=== PATIENT | female | born 1975 | race African-American/Black ===

== ENCOUNTER 2017-08-21 13:29 | Emergency (ER) | payer OTHER, SELFPAY ==
--- NOTE | 2017-08-21 15:56 | RAD ---
LEFT KNEE FOUR VIEWS: 08/21/17 HISTORY: Fall. Left knee pain. FINDINGS/IMPRESSION: Comparison is made with the exam of 04/12/10. No fracture, dislocation, or bony destruction or joint effusion identified. POS: OFF
== END 2017-08-21 15:25 | disposition home or self-care (01) ==
LOC: ERS 13:29
DX: S01.112A Laceration without foreign body of left eyelid and periocular area, initial encounter (principal); S00.81XA Abrasion of other part of head, initial encounter; S80.212A Abrasion, left knee, initial encounter; J45.909 Unspecified asthma, uncomplicated; F17.210 Nicotine dependence, cigarettes, uncomplicated; W01.10XA Fall on same level from slipping, tripping and stumbling with subsequent striking against unspecified object, initial encounter

== ENCOUNTER 2017-10-07 11:40 | Emergency (ER) | payer SELFPAY ==
--- NOTE | 2017-10-07 13:15 | RAD ---
CHEST TWO VIEW: HISTORY: Cough. COMPARISON: Chest one view from 10/20/2013. FINDINGS: The lungs are clear. No pneumothorax or effusion. The cardiac silhouette and mediastinal contour is within normal limits. IMPRESSION: No acute intrathoracic abnormality. POS: IZZYH
== END 2017-10-07 12:30 | disposition home or self-care (01) ==
LOC: ERS 11:40
DX: J40 Bronchitis, not specified as acute or chronic (principal); F17.210 Nicotine dependence, cigarettes, uncomplicated
CPT/HCPCS: 71020

== ENCOUNTER 2017-11-30 17:12 | Emergency (ER) | payer SELFPAY ==
[2017-11-30] MEDS ORDERED: Acetaminophen 500 MG TAB ONE (17:31)
[2017-11-30] MEDS ORDERED: Bicillin LA 2.4 MILL.UNITS/4 ML SYRINGE ONE (17:31)
[2017-11-30] MEDS ORDERED: Ondansetron ODT 4 MG TAB ONE (17:31)
[2017-11-30] MEDS ORDERED: Dexamethasone 4 mg/ml Vial ONE (17:31)
== END 2017-11-30 18:15 | disposition home or self-care (01) ==
LOC: ERS 17:12
DX: B34.9 Viral infection, unspecified (principal); J45.909 Unspecified asthma, uncomplicated; F17.210 Nicotine dependence, cigarettes, uncomplicated; K21.9 Gastro-esophageal reflux disease without esophagitis; Z79.899 Other long term (current) drug therapy
CPT/HCPCS: 87804; 94640; 96372; J0561; J1100; J7620; Q0162

== ENCOUNTER 2018-05-27 17:24 | Emergency (ER) | payer SELFPAY | END 2018-05-27 21:22 | disposition home or self-care (01) | LOC: ERS 17:24 | DX: H10.9 Unspecified conjunctivitis (principal); K21.9 Gastro-esophageal reflux disease without esophagitis; J45.909 Unspecified asthma, uncomplicated; F41.9 Anxiety disorder, unspecified; F31.9 Bipolar disorder, unspecified; F20.9 Schizophrenia, unspecified; F17.210 Nicotine dependence, cigarettes, uncomplicated | CPT/HCPCS: 36416; 99283 ==

== ENCOUNTER 2018-06-30 08:22 | Emergency (ER) | payer SELFPAY ==
--- NOTE | 2018-06-30 09:44 | RAD ---
RADIOGRAPH CHEST 2 VIEWS: Date: 06/30/18. Time: 8:51 a.m. HISTORY: A 42-year-old female with cough. COMPARISON: 10/07/17. FINDINGS: There is a new finding of faint, mildly increased attenuation centered in the left mid lung field, ex tending superiorly and inferiorly to involve portions of the upper and lower lung keys. Much more faint, and much smaller region of increased attenuation in the right upper lung field. Cardiomediast inal silhouette is normal. No pleural effusion or pneumothorax. IMPRESSION: 1. Mild left-sided infiltrate suggestive of early pneumonia. 2. Questionable very mild right upper lobe infiltrate. 3. Recommend followup. JOSSIE [] POS: ETHAN
[2018-06-30] MEDS ORDERED: Azithromycin 250 MG TAB ONE (10:12)
[2018-06-30] MEDS ORDERED: Benzonatate 100 MG CAP ONE (10:12)
[2018-06-30] MEDS ORDERED: Albuterol Sulfate 2.5 mg/0.5 ml Neb ONE (10:22)
[2018-06-30] MEDS ORDERED: Sodium Chloride For Inhalation 0.9% 3 ML NEB ONE (10:22)
== END 2018-06-30 11:31 | disposition home or self-care (01) ==
LOC: ERS 08:22
DX: J18.9 Pneumonia, unspecified organism (principal); F31.9 Bipolar disorder, unspecified; F20.9 Schizophrenia, unspecified; F41.9 Anxiety disorder, unspecified; J45.909 Unspecified asthma, uncomplicated; K21.9 Gastro-esophageal reflux disease without esophagitis; F17.210 Nicotine dependence, cigarettes, uncomplicated
CPT/HCPCS: 71046; 94640; J7611

== ENCOUNTER 2018-09-11 00:54 | Emergency (ER) | payer SELFPAY ==
[2018-09-11] MEDS ORDERED: Ondansetron ODT 4 MG TAB ONE (01:23)
[2018-09-11] MEDS ORDERED: Ondansetron HCl/PF 4 MG/2 ML Vial ONE (01:25)
[2018-09-11 01:37] LABS: #Basophils 0.1 thou/uL (0.0-0.2); #Lymphocytes 3.1 thou/uL (1.20-3.40); #Monocytes 0.5 thou/uL (0.11-0.59); #Neutrophils 4.3 thou/uL (1.40-6.50); %Basophils 0.8 % (0.0-1.0); %Eosinophils 0.4 % (0.0-10.0); %Lymphocytes 39.4 % (21.0-51.0); %Monocytes 5.9 % (0.0-10.0); %Neutrophils 53.5 % (42.0-75.0); Hemoglobin 12.5 g/dL (12.0-16.0); Mean Corpuscular HGB CONC 32.1 g/dL (32.0-36.0); Mean Corpuscular Hemoglobin 27.9 pg (27.0-31.0); Platelet Count 195 thou/uL (130-400); RBC Distribution Width 15.2 % (11.5-14.5); Red Blood Cell (RBC) Count 4.47 mill/uL (4.20-5.40); White Blood Cell (WBC) Count 7.9 thou/uL (4.8-10.8)
[2018-09-11 01:49] LABS: BHCG - Serum Negative (NEGATIVE); Pregs Control Background? CLEAR/WHITE (CLR/WHITE); Pregs Control Bar Appear? YES (CONTROL BAR)
[2018-09-11 01:57] LABS: ALT (SGPT) 10 U/L (8-55); AST (SGOT) 14 U/L (5-34); Albumin 4.5 g/dL (3.5-5.0); Alkaline Phosphatase 99 U/L (40-150); Anion Gap 14 mmol/L (10-20); BUN (Urea Nitrogen) 12 mg/dL (7.0-18.7); Bilirubin, Total 0.7 mg/dL (0.2-1.2); Calc. Creatinine Clearance 0 mL/min (70-130); Calcium 9.7 mg/dL (7.8-10.44); Carbon Dioxide 23 mmol/L (22-29); Chloride 105 mmol/L (98-107); Estimated GFR-MDRD 77; Globulin 3.3 g/dL (2.4-3.5); Glucose 179 mg/dL (70-105); Lipase 9 U/L (8-78); Potassium 3.1 mmol/L (3.5-5.1); Protein, Total 7.8 g/dL (6.0-8.3); Sodium 139 mmol/L (136-145)
--- NOTE | 2018-09-13 11:36 | EKG ---
Test Reason : Blood Pressure : / mmHG Vent. Rate : 086 BPM Atrial Rate : 086 BPM P-R Int : 150 ms QRS Dur : 100 ms QT Int : 386 ms P-R-T Axes : 060 036 041 degrees QTc Int : 461 ms Normal sinus rhythm Possible Left atrial enlargement Cannot rule out Anterior infarct , age undetermined Abnormal ECG Confirmed by AMANDO BRYANT DO ([id number]), magazine editor ALEKSANDRA HIGH ([id number]) on 09/13/2018 11:35:45 AM Referred By: Confirmed By:AMANDO BRYANT DO
== END 2018-09-11 02:31 | disposition home or self-care (01) ==
LOC: ERS 00:54
DX: R11.2 Nausea with vomiting, unspecified (principal); K21.9 Gastro-esophageal reflux disease without esophagitis; J45.909 Unspecified asthma, uncomplicated; F17.210 Nicotine dependence, cigarettes, uncomplicated; F31.9 Bipolar disorder, unspecified; F41.9 Anxiety disorder, unspecified; F20.9 Schizophrenia, unspecified; Z79.899 Other long term (current) drug therapy
CPT/HCPCS: 80053; 83690; 84703; 85025; 93005; 96361; 96374; J2405; Q0162

== ENCOUNTER 2018-11-07 13:43 | Emergency (ER) | payer SELFPAY ==
[2018-11-07 14:15] LABS: Bilirubin Negative (Negative); Blood, Urine Moderate (Negative); Clarity CLOUDY (Clear); Glucose, Urine (Dipstick) Negative (Negative); Leukocyte Large (Negative); Nitrite Positive (Negative); Protein, Urine (Dipstick) Negative (Neg-Trace); Specific Gravity, Urine 1.016 (1.002-1.036)
[2018-11-07 14:17] LABS: Bacteria/HPF 2+ HPF (None Seen); Hyaline Casts/LPF 0-3 HYALINE CAST LPF (0-3 Hyaline); Pathc Cast-AUWi Flag 0.29 (0-2.49); Squamous Epithelial 0-3 HPF (0-3)
[2018-11-07 14:20] LABS: Pregnancy Test - Urine (BHCG) Negative (Negative); Pregu Control Background? CLEAR/WHITE (CLR/WHITE); Pregu Control Bar Appear? YES (CONTROL BAR); Specific Gravity 1.016 (1.002-1.036)
--- NOTE | 2018-11-07 14:35 | RAD ---
RADIOGRAPH CHEST 2 VIEWS: HISTORY: A 42-year-old female with cough. FINDINGS: There is no air space density, pulmonary edema, pleural effusion, pneumothorax, or cardiomegaly. IMPRESSION: No acute cardiopulmonary findings. jn [] POS: ETHAN
== END 2018-11-07 14:52 | disposition home or self-care (01) ==
LOC: ERS 13:43
DX: N39.0 Urinary tract infection, site not specified (principal); K21.9 Gastro-esophageal reflux disease without esophagitis; J45.909 Unspecified asthma, uncomplicated; F41.9 Anxiety disorder, unspecified; F31.9 Bipolar disorder, unspecified; F20.9 Schizophrenia, unspecified; F17.210 Nicotine dependence, cigarettes, uncomplicated
CPT/HCPCS: 71046; 81003; 81015; 81025; 87077; 87086; 87186

== ENCOUNTER 2018-11-27 17:57 | Emergency (ER) | payer SELFPAY ==
[2018-11-27 20:13] LABS: Clarity CLOUDY (Clear); Glucose, Urine (Dipstick) Negative (Negative); Protein, Urine (Dipstick) Negative (Neg-Trace); Specific Gravity, Urine 1.011 (1.002-1.036); pH, Urine 6.5 (5.0-9.0)
[2018-11-27 20:15] LABS: Bacteria/HPF None Seen HPF (None Seen); Nitrite Unable to Interpret (Negative); Pathc Cast-AUWi Flag 3.77 (0-2.49); RBC/HPF 0-3 HPF (0-3); Yeast-AUWi Flag 20.2 (0-25.0)
[2018-11-27 20:16] LABS: Bilirubin Unable to Interpret (Negative); Blood, Urine Trace (Negative); Leukocyte Trace (Negative); Urobilinogen UNABLE TO INTERPRET mg/dL (0.2-1.0)
[2018-11-27 20:21] LABS: Hyaline Casts/LPF 0-3 HYALINE CAST LPF (0-3 Hyaline); Other Casts/LPF None Seen LPF (0-3 Hyaline)
[2018-11-27 20:22] LABS: Crystals/HPF 1+ STARCH HPF (Negative)
[2018-11-27 20:27] LABS: #Basophils 0.1 thou/uL (0.0-0.2); #Eosinphils 0.1 thou/uL (0.0-0.7); #Lymphocytes 2.8 thou/uL (1.20-3.40); #Monocytes 0.3 thou/uL (0.11-0.59); #Neutrophils 3.1 thou/uL (1.40-6.50); %Basophils 1.1 % (0.0-1.0); %Eosinophils 1.2 % (0.0-10.0); %Lymphocytes 44.1 % (21.0-51.0); %Monocytes 5.2 % (0.0-10.0); %Neutrophils 48.4 % (42.0-75.0); Hemoglobin 12.8 g/dL (12.0-16.0); Mean Corpuscular HGB CONC 32.9 g/dL (32.0-36.0); Mean Corpuscular Hemoglobin 28.4 pg (27.0-31.0); Mean Corpuscular Volume 86.6 fL (78.0-98.0); Mean Platelet Volume 7.6 fL (7.4-10.4); Platelet Count 237 thou/uL (130-400); RBC Distribution Width 15.1 % (11.5-14.5); White Blood Cell (WBC) Count 6.3 thou/uL (4.8-10.8)
[2018-11-27 20:44] LABS: ALT (SGPT) 12 U/L (8-55); AST (SGOT) 15 U/L (5-34); Albumin 4.2 g/dL (3.5-5.0); Alkaline Phosphatase 107 U/L (40-150); Anion Gap 14 mmol/L (10-20); BUN (Urea Nitrogen) 7 mg/dL (7.0-18.7); Bilirubin, Total 0.3 mg/dL (0.2-1.2); Calc. Creatinine Clearance 0 mL/min (70-130); Calcium 9.6 mg/dL (7.8-10.44); Carbon Dioxide 23 mmol/L (22-29); Chloride 108 mmol/L (98-107); Estimated GFR-MDRD Greater than 90; Globulin 3.5 g/dL (2.4-3.5); Glucose 99 mg/dL (70-105); Potassium 3.6 mmol/L (3.5-5.1); Protein, Total 7.7 g/dL (6.0-8.3); Sodium 141 mmol/L (136-145)
== END 2018-11-27 21:16 | disposition home or self-care (01) ==
LOC: ERS 17:57
DX: R10.9 Unspecified abdominal pain (principal); R82.71 Bacteriuria; K21.9 Gastro-esophageal reflux disease without esophagitis; J45.909 Unspecified asthma, uncomplicated; F41.9 Anxiety disorder, unspecified; F31.9 Bipolar disorder, unspecified; F17.210 Nicotine dependence, cigarettes, uncomplicated
CPT/HCPCS: 36415; 80053; 81003; 81015; 85025; 99284

== ENCOUNTER 2018-11-30 11:35 | Emergency (ER) | payer SELFPAY ==
[2018-11-30 12:41] LABS: #Eosinphils 0.1 thou/uL (0.0-0.7); #Lymphocytes 2.1 thou/uL (1.20-3.40); #Monocytes 0.3 thou/uL (0.11-0.59); #Neutrophils 2.4 thou/uL (1.40-6.50); %Basophils 0.4 % (0.0-1.0); %Eosinophils 2.6 % (0.0-10.0); %Lymphocytes 42.5 % (21.0-51.0); %Monocytes 6.7 % (0.0-10.0); %Neutrophils 47.9 % (42.0-75.0); Hemoglobin 11.9 g/dL (12.0-16.0); Mean Corpuscular HGB CONC 32.5 g/dL (32.0-36.0); Mean Corpuscular Hemoglobin 28.4 pg (27.0-31.0); Mean Corpuscular Volume 87.4 fL (78.0-98.0); Mean Platelet Volume 7.7 fL (7.4-10.4); Platelet Count 204 thou/uL (130-400); RBC Distribution Width 14.8 % (11.5-14.5); Red Blood Cell (RBC) Count 4.18 mill/uL (4.20-5.40); White Blood Cell (WBC) Count 4.9 thou/uL (4.8-10.8)
[2018-11-30 13:01] LABS: Acetaminophen Less than 6.0 mcg/mL (10.0-30.0); Alcohol Less than 10 mg/dL (Less than 10); Salicylate Less than 8.0 mg/dL (15.0-30.0)
[2018-11-30 13:06] LABS: ALT (SGPT) 9 U/L (8-55); AST (SGOT) 14 U/L (5-34); Albumin 3.8 g/dL (3.5-5.0); Alkaline Phosphatase 94 U/L (40-150); Anion Gap 13 mmol/L (10-20); BUN (Urea Nitrogen) 12 mg/dL (7.0-18.7); Bilirubin, Total Less than 0.2 mg/dL (0.2-1.2); Calc. Creatinine Clearance 0 mL/min (70-130); Calcium 8.9 mg/dL (7.8-10.44); Carbon Dioxide 20 mmol/L (22-29); Chloride 110 mmol/L (98-107); Estimated GFR-MDRD 90; Globulin 3.1 g/dL (2.4-3.5); Glucose 93 mg/dL (70-105); Potassium 3.7 mmol/L (3.5-5.1); Protein, Total 6.9 g/dL (6.0-8.3); Sodium 139 mmol/L (136-145)
[2018-11-30 13:45] LABS: Bilirubin Negative (Negative); Blood, Urine Negative (Negative); Clarity CLEAR (Clear); Glucose, Urine (Dipstick) Negative (Negative); Leukocyte Negative (Negative); Nitrite Negative (Negative); Protein, Urine (Dipstick) Negative (Neg-Trace); Specific Gravity, Urine 1.009 (1.002-1.036)
[2018-11-30 13:47] LABS: Pregnancy Test - Urine (BHCG) Negative (Negative); Pregu Control Background? CLEAR/WHITE (CLR/WHITE); Pregu Control Bar Appear? YES (CONTROL BAR); Specific Gravity 1.009 (1.002-1.036)
[2018-11-30] MEDS ORDERED: Acetaminophen 500 MG TAB ONE (13:48)
[2018-11-30] MEDS ORDERED: Ibuprofen 800 MG TAB ONE (13:48)
[2018-11-30 13:56] LABS: Amphetamine Detected (NotDetected); Barbiturates Screen Not Detected (NotDetected); Benzodiazepine Screen Not Detected (NotDetected); Cocaine Metabolite Screen Detected (NotDetected); Medtox Control Line Valid? VALID (VALID); Medtox Reader # READER 1; Methadone Not Detected (NotDetected); Methamphetamine Not Detected (NotDetected); Opiate Screen Not Detected (NotDetected); Oxycodone Screen Not Detected (NotDetected); Phencyclidine (PCP) Detected (NotDetected); THC/Cannabinoid Screen Not Detected (NotDetected); Tricyclic Screen Detected (NotDetected)
[2018-11-30] MEDS ORDERED: Nicotine 14 MG PATCH TD SCH (18:00)
[2018-11-30] MEDS ORDERED: Nitrofurantoin Monohyd/M-Cryst 100 MG CAP PO SCH (21:00)
[2018-11-30] MEDS ORDERED: Ibuprofen 200 MG TAB ONE (21:41)
[2018-11-30] MEDS ORDERED: traZODone HCl 50 MG TAB ONE (23:11)
[2018-12-01] MEDS ORDERED: Ondansetron ODT 4 MG TAB ONE (08:06)
[2018-12-01] MEDS ORDERED: Nicotine 14 MG PATCH TOP SCH (17:45)
[2018-12-02] MEDS ORDERED: risperiDONE 1 MG TAB PO SCH (10:15)
[2018-12-02] MEDS ORDERED: Ondansetron ODT 4 MG TAB PO SCH (10:15)
[2018-12-02] MEDS ORDERED: Nicotine 14 MG PATCH TD SCH (10:15)
== END 2018-12-02 15:20 | disposition home or self-care (01) ==
LOC: ERS 11:35
DX: F19.10 Other psychoactive substance abuse, uncomplicated (principal); F32.9 Major depressive disorder, single episode, unspecified; K21.9 Gastro-esophageal reflux disease without esophagitis; J45.909 Unspecified asthma, uncomplicated; F41.9 Anxiety disorder, unspecified; F31.9 Bipolar disorder, unspecified; F17.210 Nicotine dependence, cigarettes, uncomplicated; Z79.899 Other long term (current) drug therapy
CPT/HCPCS: 36415; 80053; 80306; 80307; 81003; 81025; 84443; 85025; 99284; Q0162

== ENCOUNTER 2019-06-19 14:08 | Outpatient (CLI) | payer MEDICAID ==
--- NOTE | 2019-06-19 16:09 | MMO ---
Bilateral MAMMO Bilat Screen [facility]. CLINICAL HISTORY: Patient is 43 years old and is seen for screening. The patient has the following family history of breast cancer: maternal aunt. The patient has no personal history of cancer. VIEWS: The views performed were: bilateral craniocaudal and bilateral mediolateral oblique. This study has been interpreted with the assistance of computer-aided detection. MAMMOGRAM FINDINGS: The breasts are heterogeneously dense, which could obscure a lesion on mammography. There are no suspicious masses, suspicious calcifications, or new areas of architectural distortion. IMPRESSION: THERE IS NO MAMMOGRAPHIC EVIDENCE OF MALIGNANCY. A ROUTINE FOLLOW-UP MAMMOGRAM IN 1 YEAR IS RECOMMENDED. ACR BI-RADS Category 1 - Negative MAMMOGRAPHY NOTE: 1. A negative mammogram report should not delay a biopsy if a dominant of clinically suspicious mass is present. 2. Approximately 10% to 15% of breast cancers are not detected by mammography. 3. Adenosis and dense breasts may obscure an underlying neoplasm. Reported by: BRANDON MOSLEY MD Electonically Signed: [id number]
== END 2019-06-19 14:09 | disposition home or self-care (01) ==
LOC: SCSMAMMO 14:08
PROVIDERS: ATTEND Advanced Practice Midwife
DX: Z12.31 Encounter for screening mammogram for malignant neoplasm of breast (principal); Z80.3 Family history of malignant neoplasm of breast
CPT/HCPCS: 77067

== ENCOUNTER 2020-05-06 10:35 | Emergency (ER) | payer MEDICAID, OTHER ==
[2020-05-06 11:17] LABS: #Eosinphils 0.1 thou/uL (0.0-0.7); #Lymphocytes 1.5 thou/uL (1.20-3.40); #Monocytes 0.5 thou/uL (0.11-0.59); #Neutrophils 12.2 thou/uL (1.40-6.50); %Basophils 0.2 % (0.0-1.0); %Eosinophils 0.5 % (0.0-10.0); %Lymphocytes 10.6 % (21.0-51.0); %Monocytes 3.3 % (0.0-10.0); %Neutrophils 85.4 % (42.0-75.0); Hemoglobin 12.6 g/dL (12.0-16.0); Mean Corpuscular HGB CONC 33.6 g/dL (32.0-36.0); Mean Corpuscular Volume 92.1 fL (78.0-98.0); Mean Platelet Volume 7.6 fL (7.4-10.4); Platelet Count 191 thou/uL (130-400); RBC Distribution Width 13.4 % (11.5-14.5); Red Blood Cell (RBC) Count 4.08 mill/uL (4.20-5.40); White Blood Cell (WBC) Count 14.3 thou/uL (4.8-10.8)
[2020-05-06] MEDS ORDERED: Lorazepam 2 MG/ML VIAL ONE (11:20)
--- NOTE | 2020-05-06 11:29 | RAD ---
EXAM: CHEST ONE VIEW HISTORY: Shortness of breath, fever, body aches. COMPARISON: None FINDINGS: The cardiac silhouette and pulmonary vasculature is within normal limits. There are hazy increased de nsities overlying each lung base which is thought to most likely be related to overlying soft tissue density as opposed to parenchymal opacities. However, groundglass opacities related to viral p neumonitis could give a similar appearance. No pleural effusion is seen The osseous structures are intact. IMPRESSION: Hazy densities overlying each lung base inches thought to most likely be related to overlying soft ti ssue density. However, parenchymal opacities related to viral pneumonitis would give a similar appearance. A follow-up PA and lateral chest x-ray is recommended for further evaluation.
[2020-05-06 11:39] LABS: ALT (SGPT) 10 U/L (8-55); AST (SGOT) 22 U/L (5-34); Albumin 3.3 g/dL (3.5-5.0); Alkaline Phosphatase 69 U/L (40-110); Anion Gap 9 mmol/L (10-20); BUN (Urea Nitrogen) 6 mg/dL (7.0-18.7); Bilirubin, Total 0.2 mg/dL (0.2-1.2); Calc. Creatinine Clearance 0 mL/min (70-130); Calcium 8.3 mg/dL (7.8-10.44); Carbon Dioxide 26 mmol/L (22-29); Chloride 107 mmol/L (98-107); Estimated GFR-MDRD 88; Globulin 2.4 g/dL (2.4-3.5); Glucose 146 mg/dL (70-105); Protein, Total 5.7 g/dL (6.0-8.3); Sodium 139 mmol/L (136-145)
[2020-05-06 11:50] LABS: Alcohol Less than 10 mg/dL (Less than 10); Salicylate Less than 8.0 mg/dL (15.0-30.0)
[2020-05-06 12:35] LABS: Bilirubin Negative (Negative); Blood, Urine Negative (Negative); Clarity Clear (Clear); Glucose, Urine (Dipstick) Normal (Negative); Leukocyte Negative Leu/uL (Negative); Nitrite Negative (Negative); Protein, Urine (Dipstick) Negative (Neg-Trace); Urobilinogen Normal mg/dL (Less than 2)
[2020-05-06 12:45] LABS: Amphetamine Not Detected (NotDetected); Barbiturates Screen Not Detected (NotDetected); Benzodiazepine Screen Not Detected (NotDetected); Cocaine Metabolite Screen Detected (NotDetected); Medtox Control Line Valid? VALID (VALID); Medtox Reader # READER 4; Methadone Not Detected (NotDetected); Methamphetamine Not Detected (NotDetected); Opiate Screen Not Detected (NotDetected); Oxycodone Screen Not Detected (NotDetected); Phencyclidine (PCP) Detected (NotDetected); THC/Cannabinoid Screen Not Detected (NotDetected); Tricyclic Screen Not Detected (NotDetected)
--- NOTE | 2020-05-06 13:22 | RAD ---
EXAM: Chest PA and lateral: HISTORY: Cough. Fever. COMPARISON: 11/07/2018, 04/26/2020 FINDINGS: Heart: Normal cardiac silhouette Aorta: Unremarkable Pulmonary vessels: Normal Costophrenic angles: Costophrenic angles are clear. Lungs: Persistent scattered interstitial opacities. Pneumothorax: No pneumothorax Osseous structures: No osseous abnormalities IMPRESSION: Persistent scattered interstitial opacities. The possibility of atypical infiltrate including a viral pneumonitis cannot be excluded.
--- NOTE | 2020-05-07 11:35 | EKG ---
Test Reason : Blood Pressure : / mmHG Vent. Rate : 098 BPM Atrial Rate : 098 BPM P-R Int : 168 ms QRS Dur : 090 ms QT Int : 418 ms P-R-T Axes : 064 051 039 degrees QTc Int : 533 ms Normal sinus rhythm Anteroseptal infarct , age undetermined Prolonged QT Abnormal ECG Confirmed by TRUPTI KENT DO ([id number]), technical editor ALEKSANDRA HIGH ([id number]) on 05/07/2020 11:35:17 AM Referred By: Confirmed By:TRUPTI KENT DO
[2020-05-08 11:44] LABS: SARS-CoV-2 MS2 Positive; SARS-CoV-2 N Gene Negative; SARS-CoV-2 S Gene Negative; SARS-CoV-2 orf1ab Negative
== END 2020-05-06 13:58 | disposition home or self-care (01) ==
LOC: ERS 10:35
DX: J06.9 Acute upper respiratory infection, unspecified (principal); K21.9 Gastro-esophageal reflux disease without esophagitis; J45.909 Unspecified asthma, uncomplicated; F31.9 Bipolar disorder, unspecified; F41.9 Anxiety disorder, unspecified; F17.210 Nicotine dependence, cigarettes, uncomplicated; Z20.828 Contact with and (suspected) exposure to other viral communicable diseases; Z79.899 Other long term (current) drug therapy
CPT/HCPCS: 71045; 71046; 80053; 80306; 80307; 81003; 85025; 87086; 87635; 93005; 96361; 96374; J2060; U0003

== ENCOUNTER 2020-05-08 09:17 | Inpatient (IN) | payer MEDICAID, OTHER ==
[2020-05-08 10:09] LABS: #Lymphocytes 0.8 thou/uL (1.20-3.40); #Monocytes 0.2 thou/uL (0.11-0.59); #Neutrophils 10.7 thou/uL (1.40-6.50); %Basophils 0.1 % (0.0-1.0); %Eosinophils 0.4 % (0.0-10.0); %Lymphocytes 6.8 % (21.0-51.0); %Neutrophils 90.8 % (42.0-75.0); Hemoglobin 12.2 g/dL (12.0-16.0); Mean Corpuscular HGB CONC 32.8 g/dL (32.0-36.0); Mean Corpuscular Hemoglobin 30.4 pg (27.0-31.0); Mean Corpuscular Volume 92.6 fL (78.0-98.0); Mean Platelet Volume 7.7 fL (7.4-10.4); Platelet Count 197 thou/uL (130-400); RBC Distribution Width 13.6 % (11.5-14.5); Red Blood Cell (RBC) Count 4.01 mill/uL (4.20-5.40); White Blood Cell (WBC) Count 11.8 thou/uL (4.8-10.8)
[2020-05-08 10:25] LABS: ALT (SGPT) 9 U/L (8-55); AST (SGOT) 33 U/L (5-34); Alkaline Phosphatase 102 U/L (40-110); Anion Gap 11 mmol/L (10-20); BUN (Urea Nitrogen) 5 mg/dL (7.0-18.7); Bilirubin, Total 0.4 mg/dL (0.2-1.2); Calc. Creatinine Clearance 0 mL/min (70-130); Calcium 8.3 mg/dL (7.8-10.44); Carbon Dioxide 21 mmol/L (22-29); Chloride 109 mmol/L (98-107); Estimated GFR-MDRD Greater than 90; Glucose 154 mg/dL (70-105); Potassium 3.7 mmol/L (3.5-5.1); Sodium 137 mmol/L (136-145)
--- NOTE | 2020-05-08 11:41 | RAD ---
PORTABLE CHEST ONE VIEW: 05/08/2020 10:09 a.m. HISTORY: Asthma. Dyspnea. COMPARISON: 05/06/2020 FINDINGS: The heart size is normal. There are new air space opacities bilaterally, most prominent in the right lower lung. POS: MZA
[2020-05-08] MEDS ORDERED: Acetaminophen 500 MG TAB ONE (12:47)
[2020-05-08 14:33] VITALS: BMI 34.1
[2020-05-08] MEDS ORDERED: Ondansetron ODT 4 MG TAB PO PRN (18:46)
[2020-05-08] MEDS ORDERED: Benzonatate 100 MG CAP PO PRN (18:46)
[2020-05-08] MEDS ORDERED: Ondansetron PF 4 MG/2 ML Vial IVP PRN (18:46)
[2020-05-08] MEDS ORDERED: Guaifenesin DM 100-10/5 ML UDCUP PO PRN (18:46)
[2020-05-08] MEDS ORDERED: Mometasone 200 MCG/Formoterol 5 MCG 120 PUFF INHALER INH PRN (18:46)
[2020-05-08] MEDS ORDERED: Acetaminophen/Codeine 30-300mg Tablet PO PRN (18:46)
[2020-05-08] MEDS ORDERED: Ibuprofen 800 MG TAB PO PRN (18:46)
[2020-05-08] MEDS ORDERED: hydrALAZINE 20 MG/ML VIAL SLOW IVP PRN (18:46)
[2020-05-08] MEDS ORDERED: Acetaminophen 500 MG TAB PO PRN (18:46)
[2020-05-08] MEDS ORDERED: methylPREDNISolone Sod Succ 40 MG VIAL IVP SCH (19:15)
--- NOTE | 2020-05-08 19:54 | HP ---
PRIMARY CARE PROVIDER: Hamzah Zheng [place]. CHIEF COMPLAINT: Shortness of breath. HISTORY OF PRESENT ILLNESS: This is a 44-year-old female who presents with approximately 2-day history of increasing shortness of breath, lightheadedness, dizziness, weakness with concern for exposure to coronavirus. The patient states that she was tested for coronavirus within the last 48 hours, however, has not received her results. The patient states her boyfriend works at [employer] and has tested negative in the last 1-1/2 weeks. The patient does admit to the use of cocaine and PCP as well as tobacco use with a previous history of pneumonia approximately 1 year prior to this evaluation. The patient admitted to fever, however, did not take her temperature at home. The patient denied any travel history, hemoptysis, productive cough, but admitted to associated general body aches and fatigue. The patient admits to being placed on azithromycin recently, has taken approximately 2 doses. The patient also admits to the use of metered dose inhaler with albuterol. In the emergency room, the patient underwent general evaluation with chest imaging showing bilateral infiltrates, right greater than left. The patient received Tylenol 1 g and placed on oxygen supplementation after initial O2 saturation was noted in the mid to low 80% range. The patient was unable to wean off oxygen in the emergency room, was referred to the Hospitalist Service for admission. PAST MEDICAL HISTORY: 1. Tobacco abuse. 2. Polysubstance abuse with cocaine and PCP. 3. Gastroesophageal reflux disease. 4. History of asthma. 5. History of community-acquired pneumonia. 6. Bipolar disorder. PAST SURGICAL HISTORY: 1. Status post bilateral tubal ligations. 2. Status post anal fistula repair. CURRENT MEDICATIONS: 1. Albuterol sulfate one puff inhaled p.r.n. 2. Vitamin C 750 mg p.o. daily. 3. Azithromycin 500 mg p.o. daily. 4. Tessalon Perles 100 mg p.o. t.i.d. 5. Ibuprofen 800 mg p.o. t.i.d. 6. Latuda 40 mg p.o. at bedtime. 7. Dulera 200/5 mcg one puff inhaled b.i.d. 8. Seroquel 200 mg p.o. at bedtime. 9. Tylenol No. 3 p.r.n. ALLERGIES: NO KNOWN DRUG ALLERGIES. FAMILY HISTORY: Positive for hypertension. SOCIAL HISTORY: Resides in [place], [place]. Unemployed. Smokes up to half a pack of cigarettes daily. Positive cocaine and PCP use. Functional of all activities of daily living. Occasional alcohol use. REVIEW OF SYSTEMS: CONSTITUTIONAL: Negative for weight loss or gain, ability to conduct usual activities. SKIN: Negative for rash, itching. EYES: Negative for double vision, pain. ENT/MOUTH: Negative for nose bleeding, neck stiffness, pain, tenderness. CARDIOVASCULAR: Negative for palpitations, dyspnea on exertion, orthopnea. RESPIRATORY: Negative for shortness of breath, wheezing, cough, hemoptysis, fever or night sweats. GASTROINTESTINAL: Negative for poor appetite, abdominal pain, heartburn, nausea, vomiting, constipation, or diarrhea. GENITOURINARY: Negative for urgency, frequency, dysuria, nocturia. MUSCULOSKELETAL: Negative for pain, swelling. NEUROLOGIC/PSYCHIATRIC: Negative for anxiety, depression. ALLERGY/IMMUNOLOGIC: Negative for skin rash, bleeding tendency. Otherwise, negative except as stated per HPI. PHYSICAL EXAMINATION: VITAL SIGNS: On admission, blood pressure 117/68, pulse 105, respiratory rate 24, temperature 98.8 degrees Fahrenheit, and O2 saturation 91% on 4 L/minute by nasal cannula. GENERAL APPEARANCE: This is a 44-year-old female, alert and oriented x3, pleasant, responsive, in no acute distress. HEENT: Pupils are equal, round, reactive to light and accommodation. Extraocular muscles are intact. No scleral icterus. No conjunctival injection. Nares patent. OP is clear. Teeth in fair repair. NECK: Supple. No cervical adenopathy. No thyromegaly. No carotid bruits. No JVD appreciated. No meningeal signs. CHEST: Diminished breath sounds in the bases bilaterally. Occasional expiratory wheeze. CARDIOVASCULAR: S1, S2 without noted murmur, rub, or gallop. ABDOMEN: Rounded, soft, nontender, and nondistended. Bowel sounds are positive in all 4 quadrants. There is no hepatosplenomegaly. No abdominal bruits. No rebound or guarding appreciated. EXTREMITIES: Warm and dry with fair turgor. No clubbing, cyanosis, or asymmetric edema appreciated. Pulses palpable distally at the dorsalis pedis, posterior tibial, and popliteal arteries bilaterally. Capillary refill less than 2 seconds. NEUROLOGIC: Cranial nerves 2 through 12 are grossly intact. No focal or lateralizing signs appreciated. PERTINENT LABORATORY AND X-RAY FINDINGS: Sodium 137, potassium 3.7, chloride 109, CO2 of 21, BUN 5, creatinine 0.75, glucose 154, and calcium 8.3. LFTs within normal limits. Troponin I negative x1. CBC showed a white blood cell count of 11.8, hemoglobin 12, hematocrit 37, and platelet count 197 with 91% neutrophils. Portable chest x-ray dated 05/08/2020 showed bilateral airspace opacities, prominent in the right lower lung zone. EKG dated 05/08/2020, by my interpretation shows sinus mechanism with heart rates in the 70s. Normal R-wave progression noted in the precordial leads. Normal axis. No acute ST-T wave changes appreciated. ASSESSMENT AND PLAN: 1. Acute hypoxic respiratory failure. The patient will be admitted to the medical floor. Exact etiology unclear. We will continue with the COVID-19 PCR rule out. Initiate Rocephin 2 g IV q.24 hours with additional Zithromax 500 mg IV daily. Add albuterol metered-dose inhaler 2 puffs q.6 hours. Add Dulera 2 puffs b.i.d. Continue respiratory isolation. Add Solu-Medrol 40 mg IV q.6 hours. 2. Right lower lobe pneumonia. Suspect community-acquired pneumonia. However, potential for COVID-19 exists, see #1 above. 3. Polysubstance abuse. We will offer smoking cessation resources. [facility] followup with speech clinician. 4. Bipolar disorder. Continue Seroquel 200 mg at bedtime. 5. Prophylaxis. SCDs while in bed. Respiratory isolation. Pepcid 20 mg p.o. b.i.d. Pneumovax prior to discharge. CODE STATUS: Full. Surrogate medical decision maker not identified. Job ID: [id number]
[2020-05-08] MEDS: Azithromycin 500 MG in Sodium Chloride 0.9% 250 ML 250 ML IVPB SCH (20:49)
[2020-05-08] MEDS: cefTRIAXone\\ROCEPHIN 2 GM in Sodium Chloride 0.9% 100 ML IVPB SCH (20:49)
[2020-05-08] MEDS ORDERED: LURASIDONE HCL 40 MG PO SCH (21:00)
[2020-05-08] MEDS: PROVENTIL INHALER 6.7 G (200 INHALATIONS) INH SCH (21:21)
[2020-05-08] MEDS: methylPREDNISolone Sod Succ 40 MG VIAL IVP SCH (23:31)
[2020-05-09] MEDS: PROVENTIL INHALER 6.7 G (200 INHALATIONS) INH SCH ×4 (01:25→19:11)
[2020-05-09] MEDS: methylPREDNISolone Sod Succ 40 MG VIAL IVP SCH ×4 (05:45→23:38)
[2020-05-09 06:13] LABS: Anion Gap 16 mmol/L (10-20); BUN (Urea Nitrogen) 6 mg/dL (7.0-18.7); Calc. Creatinine Clearance 124 mL/min (70-130); Calcium 8.9 mg/dL (7.8-10.44); Carbon Dioxide 17 mmol/L (22-29); Chloride 111 mmol/L (98-107); Estimated GFR-MDRD Greater than 90; Glucose 193 mg/dL (70-105); Potassium 3.8 mmol/L (3.5-5.1); Sodium 140 mmol/L (136-145)
[2020-05-09] MEDS: Ascorbic Acid 500 mg Chewable Tablet PO SCH (09:10)
[2020-05-09 11:10] LABS: Hemoglobin 11.8 g/dL (12.0-16.0); Lymphocytes 5 % (21-51); MDiff Complete? YES; Mean Corpuscular HGB CONC 32.6 g/dL (32.0-36.0); Mean Platelet Volume 8.2 fL (7.4-10.4); Monocytes 4 % (0-10); Neutrophil 91 % (42-75); Platelet Count 192 thou/uL (130-400); Platelet Morphology Comment Appears Adequate; RBC Distribution Width 13.5 % (11.5-14.5); Red Blood Cell (RBC) Count 3.94 mill/uL (4.20-5.40); White Blood Cell (WBC) Count 9.6 thou/uL (4.8-10.8)
--- NOTE | 2020-05-09 17:46 | PDOC.HOSPP ---
- Subjective Encounter Date: 05/09/20 Encounter Time: 17:30 Subjective: f/u for COPD/PNA on current Rocephin/Zithromax/Solumedrol/Albuterol. States feeling better overall but still coughing. COVID-19 PCR negative. - Objective Vital Signs & Weight: Vital Signs (12 hours) Temp Pulse Resp BP Pulse Ox 05/09/20 16:03 98.4 F 86 20 121/70 94 L 05/09/20 10:53 98 F 78 18 106/63 93 L 05/09/20 08:00 98.4 F 78 18 116/70 92 L Weight Weight 186 lb 8 oz I&O: 05/08/20 05/09/20 05/10/20 06:59 06:59 06:59 Intake Total 490 960 Balance 490 960 Result Diagrams: 05/09/20 05:12 05/09/20 05:12 Additional Labs: Laboratory Tests 05/06/20 05/08/20 05/08/20 13:58 09:59 09:59 WBC 11.8 H Carbon Dioxide 21 L COVID-19 PCR Not Detected Hospitalist ROS - Medication Medications: Active Medications Generic Name Dose Route Start Last Admin Trade Name Freq PRN Reason Stop Dose Admin Acetaminophen 1,000 mg 05/08/20 18:46 05/08/20 22:02 Tylenol PO 1,000 mg Q6H PRN Administration Mild Pain (1-3) Albuterol Sulfate 2 puff 05/08/20 19:00 05/09/20 12:53 Proventil Hfa INH 2 puff [id number]-OC LATISHA Administration Ascorbic Acid 750 mg 05/09/20 09:00 05/09/20 09:10 Vitamin C PO 750 mg DAILY LATISHA Administration Azithromycin 500 mg/ Sodium 250 mls @ 250 mls/hr 05/08/20 20:00 05/08/20 20: 49 Chloride IVPB 250 mls 2000 LATISHA Administration Ceftriaxone Sodium 2 gm/ 100 mls @ 200 mls/hr 05/08/20 21:00 05/08/20 20:49 Sodium Chloride IVPB 100 mls 2100 LATISHA Administration Methylprednisolone Sodium Succinate 40 mg 05/08/20 23:59 05/09/20 12:53 Solu-Medrol IVP 40 mg Q6HR LATISHA Administration Pantoprazole Sodium 40 mg 05/08/20 21:00 05/08/20 20:50 Protonix PO 40 mg HS LATISHA Administration Quetiapine Fumarate 200 mg 05/08/20 21:00 05/08/20 20:50 Seroquel PO 200 mg HS LATISHA Administration - Exam General Appearance: NAD, awake alert Eye: PERRL, anicteric sclera ENT: normocephalic atraumatic, no oropharyngeal lesions Neck: supple, symmetric, no JVD, no thyromegaly, no lymphadenopathy Heart: RRR, no murmur, no gallops, no rubs, normal peripheral pulses Heart - other findings: S1, S2 Respiratory: rhonchi, tachypneic, wheezes Gastrointestinal: soft, non-tender, non-distended, normal bowel sounds, no palpable masses Extremities: no cyanosis, no clubbing, no edema Skin: normal turgor, no lesions Neurological: cranial nerve grossly intact, no new deficit Musculoskeletal: normal tone, normal strength, no muscle wasting Psychiatric: normal affect, A&O x 3 Hosp A/P (1) Acute respiratory failure with hypoxia Code(s): J96.01 - ACUTE RESPIRATORY FAILURE WITH HYPOXIA Status: Acute Plan: slow improvement, continue O2 supplementation, see below for mgmt (2) RLL pneumonia Code(s): J18.9 - PNEUMONIA, UNSPECIFIED ORGANISM Status: Acute Plan: COVID-19 ruled out, continue Rocephin/Zithromax/Solumedrol, add Duonebs q4h (3) Polysubstance abuse Code(s): F19.10 - OTHER PSYCHOACTIVE SUBSTANCE ABUSE, UNCOMPLICATED Status: Chronic Plan: Cessation resources (4) Bipolar 1 disorder Code(s): F31.9 - BIPOLAR DISORDER, UNSPECIFIED Status: Acute - Plan continue antibiotics, social insurance specialist, respiratory therapy, out of bed/ambulate , DVT proph w/SCDs Stable currently Continue Rocephin/Zithromax Add Duonebs q4h D/C resp precautions OOB/ambulate Continue Solumedrol
[2020-05-09] MEDS: Azithromycin 500 MG in Sodium Chloride 0.9% 250 ML 250 ML IVPB SCH (19:48)
[2020-05-09] MEDS: cefTRIAXone\\ROCEPHIN 2 GM in Sodium Chloride 0.9% 100 ML IVPB SCH (21:27)
[2020-05-10] MEDS: methylPREDNISolone Sod Succ 40 MG VIAL IVP SCH ×4 (05:08→23:14)
[2020-05-10] MEDS: Ascorbic Acid 500 mg Chewable Tablet PO SCH (08:40)
--- NOTE | 2020-05-10 09:38 | PDOC.HOSPP ---
- Subjective Encounter Date: 05/10/20 Encounter Time: 09:30 Subjective: f/u for RLL PNA on 2L/min NC receiving Rocephin/Zithromax/Solumedrol. Overall feels better but labored breathing with ambulation. - Objective Vital Signs & Weight: Vital Signs (12 hours) Temp Pulse Resp BP Pulse Ox 05/10/20 07:23 87 16 94 L 05/10/20 07:12 98.3 F 76 20 112/55 L 98 05/10/20 05:11 98.4 F 69 24 H 117/63 95 05/10/20 02:24 72 16 93 L 05/09/20 23:50 98.1 F 74 22 H 108/63 93 L 05/09/20 22:32 74 18 94 L Weight Weight 186 lb 8 oz I&O: 05/09/20 05/10/20 05/11/20 06:59 06:59 06:59 Intake Total 490 2310 Balance 490 2310 Result Diagrams: 05/09/20 05:12 05/09/20 05:12 Additional Labs: Laboratory Tests 05/06/20 05/08/20 05/08/20 13:58 09:59 09:59 WBC 11.8 H Carbon Dioxide 21 L COVID-19 PCR Not Detected Hospitalist ROS - Medication Medications: Active Medications Generic Name Dose Route Start Last Admin Trade Name Freq PRN Reason Stop Dose Admin Acetaminophen 1,000 mg 05/08/20 18:46 05/08/20 22:02 Tylenol PO 1,000 mg Q6H PRN Administration Mild Pain (1-3) Albuterol/Ipratropium 3 ml 05/09/20 18:30 05/10/20 07:23 Duoneb NEB 3 ml [id number] LATISHA Administration Ascorbic Acid 750 mg 05/09/20 09:00 05/10/20 08:40 Vitamin C PO 750 mg DAILY LATISHA Administration Azithromycin 500 mg/ Sodium 250 mls @ 250 mls/hr 05/08/20 20:00 05/09/20 19: 48 Chloride IVPB 250 mls 2000 LATISHA Administration Ceftriaxone Sodium 2 gm/ 100 mls @ 200 mls/hr 05/08/20 21:00 05/09/20 21:27 Sodium Chloride IVPB 100 mls 2100 LATISHA Administration Methylprednisolone Sodium Succinate 40 mg 05/08/20 23:59 05/10/20 05:08 Solu-Medrol IVP 40 mg Q6HR LATISHA Administration Pantoprazole Sodium 40 mg 05/08/20 21:00 05/09/20 21:27 Protonix PO 40 mg HS LATISHA Administration Quetiapine Fumarate 200 mg 05/08/20 21:00 05/09/20 21:27 Seroquel PO 200 mg HS LATISHA Administration - Exam General Appearance: NAD, awake alert Eye: PERRL, anicteric sclera ENT: normocephalic atraumatic, no oropharyngeal lesions Neck: supple, symmetric, no JVD, no thyromegaly, no lymphadenopathy Heart: RRR, no murmur, no gallops, no rubs, normal peripheral pulses Heart - other findings: S1, S2 Respiratory: tachypneic Respiratory - other findings: diminished bilat, exp wheeze Gastrointestinal: soft, non-tender, non-distended, normal bowel sounds, no palpable masses Extremities: no cyanosis, no clubbing, no edema Skin: normal turgor, no lesions Neurological: cranial nerve grossly intact, no new deficit Musculoskeletal: normal tone, normal strength, no muscle wasting Psychiatric: normal affect, A&O x 3 Hosp A/P (1) Acute respiratory failure with hypoxia Code(s): J96.01 - ACUTE RESPIRATORY FAILURE WITH HYPOXIA Status: Acute Plan: Continue O2 supplementation, attempt slow wean (2) RLL pneumonia Code(s): J18.9 - PNEUMONIA, UNSPECIFIED ORGANISM Status: Acute Plan: Continue Zithromax/Solumedrol/Duonebs (3) Polysubstance abuse Code(s): F19.10 - OTHER PSYCHOACTIVE SUBSTANCE ABUSE, UNCOMPLICATED Status: Chronic (4) Bipolar 1 disorder Code(s): F31.9 - BIPOLAR DISORDER, UNSPECIFIED Status: Acute - Plan continue antibiotics, criminal justice social worker, respiratory therapy, out of bed/ambulate , DVT proph w/SCDs Stable currently Continue Rocephin/Zithromax Add Duonebs q4h D/C resp precautions OOB/ambulate Continue Solumedrol Wean O2 as clinically tolerated Likely home in 24h
[2020-05-10] MEDS: Azithromycin 500 MG in Sodium Chloride 0.9% 250 ML 250 ML IVPB SCH (20:03)
[2020-05-10] MEDS: cefTRIAXone\\ROCEPHIN 2 GM in Sodium Chloride 0.9% 100 ML IVPB SCH (21:23)
[2020-05-11] MEDS: methylPREDNISolone Sod Succ 40 MG VIAL IVP SCH (05:46)
[2020-05-11] MEDS: Ascorbic Acid 500 mg Chewable Tablet PO SCH (07:49)
[2020-05-11 11:23] VITALS: BP 123/68; TEMP 97.7
--- NOTE | 2020-05-12 00:47 | DIS ---
DATE OF ADMISSION: 05/08/2020 DATE OF DISCHARGE: 05/11/2020 DISCHARGE DIAGNOSES: 1. Acute hypoxic respiratory failure, resolving. 2. Right lower lobe bacterial pneumonia, suspected gram-positive cocci. 3. Polysubstance abuse. 4. Bipolar disorder, type 1. CONSULTATIONS: None. PERTINENT LABORATORY AND X-RAY FINDINGS: CBC showed a white blood cell count ranged between 9.6 to 11.8. Urine culture dated 05/06/2020, showed no growth at 48 hours. Portable chest x-ray dated 05/08/2020, showed right lower lung zone infiltrate. COVID-19 PCR not detected, 05/06/2020. Urine drug screen dated 05/06/2020, positive for PCP and cocaine. HOSPITAL COURSE: The patient was admitted to the medical floor after initially presenting with shortness of breath and hypoxia. The patient underwent chest imaging showing right lower lobe infiltrate concerning for pneumonia. The patient was ruled out for COVID-19 by PCR analysis, 05/06/2020. The patient received oxygen supplementation in addition to IV azithromycin and Rocephin and given bronchodilator therapy. The patient also was given Solu-Medrol and overall clinically stabilized in approximately 72 hours. The patient was able to wean off oxygen support, maintaining O2 saturations in the mid upper 90% range on room air. Overall, the patient did remain clinically stable during the hospital course and tolerated regular oral intake. I have examined the patient at the time of discharge and discussed followup instructions. The patient verbalized understanding and agreement ready for discharge on 05/11/2020. DISCHARGE MEDICATIONS: 1. Albuterol sulfate one puff inhaled q.6 hours p.r.n. 2. Vitamin C 750 mg p.o. daily. 3. Latuda 40 mg p.o. at bedtime. 4. Dulera 200/5 mcg one puff inhaled b.i.d. 5. Seroquel 200 mg p.o. at bedtime. 6. Augmentin 500 mg one tablet p.o. b.i.d. x5 days. 7. Prednisone 20 mg take 2 tablets p.o. daily x3 days, followed by 1 tablet p.o. daily x3 days, followed by half a tablet p.o. daily x3 days. FOLLOWUP: The patient may follow up at [facility] on 05/12/2020 at 2:30 p.m. CONDITION ON DISCHARGE: Stable. ACTIVITY: Ad-lisseth. DIET: Regular. CODE STATUS: Full. DISPOSITION: Home, 05/11/2020. TIME SPENT: Total time preparing and coordinating discharge, 33 minutes. Job ID: [id number]
== END 2020-05-11 11:38 | disposition home or self-care (01) | DRG 193 ==
LOC: ERS 09:17 → T4-B 13:57
PROVIDERS: ADMIT Family Medicine; ATTEND Family Medicine
DX: J15.9 Unspecified bacterial pneumonia (principal); J96.01 Acute respiratory failure with hypoxia; J44.0 Chronic obstructive pulmonary disease with (acute) lower respiratory infection; Z20.828 Contact with and (suspected) exposure to other viral communicable diseases; K21.9 Gastro-esophageal reflux disease without esophagitis; F31.9 Bipolar disorder, unspecified; F41.9 Anxiety disorder, unspecified; F17.210 Nicotine dependence, cigarettes, uncomplicated; F19.10 Other psychoactive substance abuse, uncomplicated; Z79.899 Other long term (current) drug therapy; Z98.51 Tubal ligation status
CPT/HCPCS: 36415; 71045; 80048; 80053; 84484; 85007; 85025; 85027; 93005; 94640; J0456; J0696; J2920; J3490; J7050; J7620

== ENCOUNTER 2020-09-24 00:45 | Emergency (ER) | payer MEDICAID, SELFPAY ==
[2020-09-24] MEDS ORDERED: Ketorolac Tromethamine 30 MG/ML VIAL ONE (02:13)
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
[2020-09-24] MEDS ORDERED: Iopamidol-370 76% 500 ML 1 ML ONE (14:22)
== END 2020-09-24 02:56 | disposition home or self-care (01) ==
LOC: ERS 00:45
DX: S50.02XA Contusion of left elbow, initial encounter (principal); S30.1XXA Contusion of abdominal wall, initial encounter; S80.01XA Contusion of right knee, initial encounter; S80.02XA Contusion of left knee, initial encounter; M62.838 Other muscle spasm; K21.9 Gastro-esophageal reflux disease without esophagitis; J45.909 Unspecified asthma, uncomplicated; F31.9 Bipolar disorder, unspecified; F41.9 Anxiety disorder, unspecified; F17.220 Nicotine dependence, chewing tobacco, uncomplicated; F17.210 Nicotine dependence, cigarettes, uncomplicated; Z79.899 Other long term (current) drug therapy; V49.9XXA Car occupant (driver) (passenger) injured in unspecified traffic accident, initial encounter
CPT/HCPCS: 70450; 71045; 71260; 72125; 74177; 96374; J1885; Q9967

== ENCOUNTER 2021-09-15 18:12 | Emergency (ER) | payer OTHER ==
[2021-09-15 19:05] LABS: #Basophils 0.1 thou/uL (0.0-0.2); #Eosinphils 0.1 thou/uL (0.0-0.7); #Lymphocytes 2.9 thou/uL (1.20-3.40); #Monocytes 0.6 thou/uL (0.11-0.59); #Neutrophils 6.4 thou/uL (1.40-6.50); %Basophils 0.6 % (0.0-1.0); %Eosinophils 0.7 % (0.0-10.0); %Lymphocytes 29.4 % (21.0-51.0); %Monocytes 5.7 % (0.0-10.0); %Neutrophils 63.6 % (42.0-75.0); Hemoglobin 10.2 g/dL (12.0-16.0); Mean Corpuscular HGB CONC 32.7 g/dL (32.0-36.0); Mean Corpuscular Hemoglobin 28.7 pg (27.0-31.0); Mean Platelet Volume 7.6 fL (7.4-10.4); Platelet Count 210 thou/uL (130-400); RBC Distribution Width 15.7 % (11.5-14.5); Red Blood Cell (RBC) Count 3.54 mill/uL (4.20-5.40)
[2021-09-15 19:34] LABS: ALT (SGPT) 11 U/L (8-55); AST (SGOT) 14 U/L (5-34); Albumin 3.5 g/dL (3.5-5.0); Alkaline Phosphatase 100 U/L (40-110); Anion Gap 11 mmol/L (10-20); BUN (Urea Nitrogen) 5 mg/dL (7.0-18.7); Bilirubin, Total 0.3 mg/dL (0.2-1.2); Calc. Creatinine Clearance 0 mL/min (70-130); Calcium 8.8 mg/dL (7.8-10.44); Carbon Dioxide 26 mmol/L (22-29); Chloride 106 mmol/L (98-107); Globulin 2.7 g/dL (2.4-3.5); Glucose 96 mg/dL (70-105); Potassium 3.3 mmol/L (3.5-5.1); Protein, Total 6.2 g/dL (6.0-8.3); Sodium 140 mmol/L (136-145)
== END 2021-09-15 20:23 | disposition home or self-care (01) ==
LOC: ERS 18:12
DX: J18.9 Pneumonia, unspecified organism (principal); J04.0 Acute laryngitis; F17.210 Nicotine dependence, cigarettes, uncomplicated; J45.909 Unspecified asthma, uncomplicated; K21.9 Gastro-esophageal reflux disease without esophagitis
CPT/HCPCS: 36415; 71045; 80053; 85025

== ENCOUNTER 2022-07-20 07:22 | Emergency (ER) | payer SELFPAY ==
[2022-07-20 08:09] LABS: #Eosinphils 0.1 thou/uL (0.0-0.7); #Lymphocytes 2.1 thou/uL (1.20-3.40); #Monocytes 0.5 thou/uL (0.11-0.59); #Neutrophils 2.8 thou/uL (1.40-6.50); %Eosinophils 1.7 % (0.0-10.0); %Lymphocytes 38.3 % (21.0-51.0); %Monocytes 9.2 % (0.0-10.0); %Neutrophils 50.8 % (42.0-75.0); Hemoglobin 10.9 g/dL (12.0-16.0); Mean Corpuscular HGB CONC 31.3 g/dL (32.0-36.0); Mean Corpuscular Hemoglobin 26.2 pg (27.0-31.0); Mean Corpuscular Volume 83.7 fL (78.0-98.0); Mean Platelet Volume 8.2 fL (7.4-10.4); Platelet Count 202 thou/uL (130-400); RBC Distribution Width 17.6 % (11.5-14.5); Red Blood Cell (RBC) Count 4.17 mill/uL (4.20-5.40); White Blood Cell (WBC) Count 5.5 thou/uL (4.8-10.8)
[2022-07-20 08:30] LABS: Acetaminophen Less than 10.0 mcg/mL (10.0-30.0); Alcohol Less than 10 mg/dL (Less than 10); CK (CPK) 103 U/L (29-168); Salicylate Less than 8.0 mg/dL (15.0-30.0)
[2022-07-20 08:41] LABS: ALT (SGPT) 12 U/L (8-55); AST (SGOT) 17 U/L (5-34); Albumin 4.1 g/dL (3.5-5.0); Alkaline Phosphatase 99 U/L (40-110); Anion Gap 15 mmol/L (10-20); BUN (Urea Nitrogen) 8 mg/dL (7.0-18.7); Bilirubin, Total 0.6 mg/dL (0.2-1.2); Calc. Creatinine Clearance 0 mL/min (70-130); Calcium 9.3 mg/dL (7.8-10.44); Carbon Dioxide 23 mmol/L (22-29); Chloride 105 mmol/L (98-107); Estimated GFR 94; Globulin 3.2 g/dL (2.4-3.5); Glucose 93 mg/dL (70-105); Potassium 3.1 mmol/L (3.5-5.1); Protein, Total 7.3 g/dL (6.0-8.3); Sodium 140 mmol/L (136-145)
[2022-07-20 11:09] LABS: Bacteria/HPF None Seen HPF (None Seen); Bilirubin Negative (Negative); Blood, Urine 1+ (Negative); Clarity Clear (Clear); Glucose, Urine (Dipstick) Normal (Negative); Ketone, Urine Negative (Negative); Leukocyte Negative Leu/uL (Negative); Nitrite Negative (Negative); Protein, Urine (Dipstick) Negative (Neg-Trace); Specific Gravity, Urine 1.015 (1.002-1.036); WBC/HPF 0-3 HPF (0-3)
[2022-07-20 11:10] LABS: Pregnancy Test - Urine (BHCG) Negative (Negative); Pregu Control Bar Appear? YES (CONTROL BAR); Specific Gravity 1.015 (1.002-1.036)
[2022-07-20 11:11] LABS: Pregu Control Background? CLEAR/WHITE (CLR/WHITE)
[2022-07-20 11:18] LABS: Amphetamine Not Detected (NotDetected); Barbiturates Screen Not Detected (NotDetected); Benzodiazepine Screen Not Detected (NotDetected); Cocaine Metabolite Screen Detected (NotDetected); Methadone Not Detected (NotDetected); Methamphetamine Detected (NotDetected); Opiate Screen Not Detected (NotDetected); Oxycodone Screen Not Detected (NotDetected); Phencyclidine (PCP) Detected (NotDetected); THC/Cannabinoid Screen Not Detected (NotDetected); Tricyclic Screen Not Detected (NotDetected)
[2022-07-20] MEDS ORDERED: Nicotine 14 MG PATCH ONE (16:58)
[2022-07-20] MEDS ORDERED: Lurasidone 20 MG TABLET PO SCH (22:15)
[2022-07-20] MEDS ORDERED: FLUoxetine HCl 20 MG CAP PO SCH (22:15)
[2022-07-20] MEDS ORDERED: hydrOXYzine 25 MG TAB ONE (22:22)
[2022-07-20 23:12] LABS: SARS-CoV-2 NAA Rapid Test Not Detected (NotDetected)
[2022-07-21] MEDS ORDERED: hydrOXYzine 25 MG TAB PO SCH (22:45)
[2022-07-21] MEDS ORDERED: Lurasidone 20 MG TABLET PO SCH (23:00)
[2022-07-22] MEDS ORDERED: FLUoxetine HCl 20 MG CAP PO SCH (09:00)
[2022-07-23] MEDS ORDERED: Docusate 100 MG CAP PO SCH (12:00)
[2022-07-23] MEDS ORDERED: Nicotine 14 MG PATCH ONE (17:30)
[2022-07-23] MEDS ORDERED: Lurasidone 20 MG TABLET PO SCH (20:45)
[2022-07-23] MEDS ORDERED: hydrOXYzine 25 MG TAB PO SCH (20:45)
[2022-07-24] MEDS ORDERED: Lurasidone 20 MG TABLET PO SCH (15:15)
== END 2022-07-20 15:59 | disposition home or self-care (01) ==
LOC: ERS 07:22
DX: R45.851 Suicidal ideations (principal); R45.850 Homicidal ideations; F19.10 Other psychoactive substance abuse, uncomplicated; F17.220 Nicotine dependence, chewing tobacco, uncomplicated; K21.9 Gastro-esophageal reflux disease without esophagitis; Z20.822 Contact with and (suspected) exposure to COVID-19; Z79.899 Other long term (current) drug therapy
CPT/HCPCS: 36415; 80053; 80306; 80307; 81003; 81015; 81025; 82550; 84443; 85025; 99285; U0002

== ENCOUNTER 2022-07-30 10:58 | Emergency (ER) | payer SELFPAY | END 2022-07-30 13:14 | disposition home or self-care (01) | LOC: ERS 10:58 | DX: M19.021 Primary osteoarthritis, right elbow (principal); K21.9 Gastro-esophageal reflux disease without esophagitis; F17.220 Nicotine dependence, chewing tobacco, uncomplicated; F17.210 Nicotine dependence, cigarettes, uncomplicated ==

== ENCOUNTER 2022-10-08 15:02 | Emergency (ER) | payer SELFPAY ==
[2022-10-08] MEDS ORDERED: predniSONE 20 MG TAB ONE (16:03)
[2022-10-08 17:57] LABS: SARS-CoV-2 NAA Rapid Test Not Detected (NotDetected)
== END 2022-10-08 16:35 | disposition home or self-care (01) ==
LOC: ERS 15:02
DX: J18.8 Other pneumonia, unspecified organism (principal); K21.9 Gastro-esophageal reflux disease without esophagitis; F17.220 Nicotine dependence, chewing tobacco, uncomplicated; Z20.822 Contact with and (suspected) exposure to COVID-19
CPT/HCPCS: 71045; J7512; J7620

== ENCOUNTER 2023-03-25 08:09 | Emergency (ER) | payer SELFPAY ==
[2023-03-25] MEDS ORDERED: Ketorolac Tromethamine 30 MG/ML VIAL ONE (08:52)
[2023-03-25 08:58] LABS: BHCG - Serum Negative (NEGATIVE); Pregs Control Background? CLEAR/WHITE (CLR/WHITE); Pregs Control Bar Appear? YES (CONTROL BAR)
[2023-03-25 08:59] LABS: #Eosinphils 0.1 thou/uL (0.0-0.7); #Lymphocytes 2.2 thou/uL (1.20-3.40); #Monocytes 0.6 thou/uL (0.11-0.59); #Neutrophils 3.4 thou/uL (1.40-6.50); %Basophils 0.3 % (0.0-1.0); %Eosinophils 2.3 % (0.0-10.0); %Lymphocytes 34.2 % (21.0-51.0); %Monocytes 9.6 % (0.0-10.0); %Neutrophils 53.5 % (42.0-75.0); Hemoglobin 10.7 g/dL (12.0-16.0); Mean Corpuscular HGB CONC 30.6 g/dL (32.0-36.0); Mean Corpuscular Hemoglobin 25.5 pg (27.0-31.0); Mean Corpuscular Volume 83.2 fl (78.0-98.0); Mean Platelet Volume 8.2 fL (7.4-10.4); Platelet Count 210 10x3/uL (130-400); RBC Distribution Width 17.5 % (11.5-14.5); Red Blood Cell (RBC) Count 4.19 mill/uL (4.20-5.40); White Blood Cell (WBC) Count 6.4 10x3/uL (4.8-10.8)
[2023-03-25 09:07] LABS: ALT (SGPT) 9 U/L (8-55); AST (SGOT) 14 U/L (5-34); Albumin 3.9 g/dL (3.5-5.0); Alkaline Phosphatase 112 U/L (40-110); Anion Gap 12 mmol/L (10-20); BUN (Urea Nitrogen) 8 mg/dL (7.0-18.7); Bilirubin, Total 0.2 mg/dL (0.2-1.2); Calc. Creatinine Clearance 0 mL/min (70-130); Calcium 8.9 mg/dL (7.8-10.44); Carbon Dioxide 24 mmol/L (22-29); Chloride 106 mmol/L (98-107); Estimated GFR 84; Globulin 3.1 g/dL (2.4-3.5); Glucose 115 mg/dL (70-105); Lipase 20 U/L (8-78); Potassium 3.3 mmol/L (3.5-5.1); Sodium 139 mmol/L (136-145)
[2023-03-25] MEDS ORDERED: Iopamidol 370 76% 100 ML VIAL ONE (09:43)
== END 2023-03-25 10:39 | disposition home or self-care (01) ==
LOC: ERS 08:09
DX: R10.9 Unspecified abdominal pain (principal); K21.9 Gastro-esophageal reflux disease without esophagitis; F17.210 Nicotine dependence, cigarettes, uncomplicated
CPT/HCPCS: 74177; 80053; 83690; 84703; 85025; 96374; J1885; Q9967

== ENCOUNTER 2023-05-21 12:32 | Emergency (ER) | payer SELFPAY ==
[2023-05-21 13:10] LABS: #Monocytes 0.8 thou/uL (0.11-0.59); #Neutrophils 6.4 thou/uL (1.40-6.50); %Basophils 0.2 % (0.0-1.0); %Eosinophils 0.3 % (0.0-10.0); %Monocytes 9.5 % (0.0-10.0); %Neutrophils 74.2 % (42.0-75.0); Hemoglobin 9.3 g/dL (12.0-16.0); Mean Corpuscular HGB CONC 31.1 g/dL (32.0-36.0); Mean Corpuscular Hemoglobin 25.7 pg (27.0-31.0); Mean Corpuscular Volume 82.6 fl (78.0-98.0); Mean Platelet Volume 10.2 fL (7.4-10.4); Platelet Count 244 10x3/uL (130-400); Red Blood Cell (RBC) Count 3.62 mill/uL (4.20-5.40); White Blood Cell (WBC) Count 8.6 10x3/uL (4.8-10.8)
[2023-05-21 13:24] LABS: BHCG - Serum Negative (NEGATIVE); Pregs Control Background? CLEAR/WHITE (CLR/WHITE); Pregs Control Bar Appear? YES (CONTROL BAR)
[2023-05-21] MEDS ORDERED: Iopamidol-370 76% 500 ML MDV (1 ML CHARGE) ONE (13:31)
[2023-05-21 14:03] LABS: ALT (SGPT) 11 U/L (8-55); AST (SGOT) 14 U/L (5-34); Albumin 3.7 g/dL (3.5-5.0); Alkaline Phosphatase 87 U/L (40-110); Anion Gap 16 mmol/L (10-20); BUN (Urea Nitrogen) 6 mg/dL (7.0-18.7); Bilirubin, Total 0.2 mg/dL (0.2-1.2); Calc. Creatinine Clearance 0 mL/min (70-130); Calcium 9.1 mg/dL (7.8-10.44); Carbon Dioxide 26 mmol/L (22-29); Chloride 96 mmol/L (98-107); Estimated GFR 104; Globulin 4.1 g/dL (2.4-3.5); Glucose 108 mg/dL (70-105); Lipase 4 U/L (8-78); Protein, Total 7.8 g/dL (6.0-8.3); Sodium 135 mmol/L (136-145)
[2023-05-21 14:42] LABS: Bacteria/HPF 4+ HPF (None Seen); Bilirubin Negative (Negative); Blood, Urine 3+ (Negative); CAUTI Indications for Culture Dysuria,urgency,freq; Clarity Turbid (Clear); Glucose, Urine (Dipstick) Normal (Negative); Ketone, Urine Negative (Negative); Leukocyte 500 Leu/uL (Negative); Nitrite Negative (Negative); Protein, Urine (Dipstick) 70 mg/dL (Neg-Trace); RBC/HPF Greater than 50 HPF (0-3); Specific Gravity, Urine 1.014 (1.002-1.036); Urobilinogen Normal mg/dL (Less than 2); WBC/HPF Greater than 50 HPF (0-3)
[2023-05-21 14:44] LABS: Urine Culture Reflex Yes Yes
[2023-05-21] MEDS ORDERED: cefTRIAXone (ROCEPHIN) 2 GM VIAL ONE (14:56)
[2023-05-21] MEDS ORDERED: Ketorolac Tromethamine 30 MG/ML VIAL ONE (14:56)
[2023-05-21 15:34] LABS: SARS-CoV-2 NAA Rapid Test Not Detected (NotDetected)
[2023-05-21] MEDS ORDERED: Potassium Chloride 20 MEQ TAB ONE ×2 (15:57→15:59)
== END 2023-05-21 16:01 | disposition home or self-care (01) ==
LOC: ERS 12:32
DX: R50.9 Fever, unspecified (principal); R05.9 Cough, unspecified; D64.9 Anemia, unspecified; N39.0 Urinary tract infection, site not specified; E87.6 Hypokalemia; K21.9 Gastro-esophageal reflux disease without esophagitis; F17.210 Nicotine dependence, cigarettes, uncomplicated; Z20.822 Contact with and (suspected) exposure to COVID-19
CPT/HCPCS: 36415; 71045; 74177; 80053; 81001; 83605; 83690; 84703; 85025; 87040; 87077; 87086; 87149; 87186; 96365; 96375; J0696; J1885

== ENCOUNTER 2023-05-22 21:53 | Emergency (ER) | payer SELFPAY ==
[2023-05-22 22:20] LABS: #Eosinphils 0.1 thou/uL (0.0-0.7); #Monocytes 0.7 thou/uL (0.11-0.59); #Neutrophils 6.7 thou/uL (1.40-6.50); %Basophils 0.2 % (0.0-1.0); %Eosinophils 0.9 % (0.0-10.0); %Lymphocytes 18.3 % (21.0-51.0); %Monocytes 7.2 % (0.0-10.0); %Neutrophils 72.5 % (42.0-75.0); Hemoglobin 8.7 g/dL (12.0-16.0); Mean Corpuscular HGB CONC 31.1 g/dL (32.0-36.0); Mean Corpuscular Hemoglobin 25.7 pg (27.0-31.0); Mean Corpuscular Volume 82.6 fl (78.0-98.0); Mean Platelet Volume 9.7 fL (7.4-10.4); Platelet Count 249 10x3/uL (130-400); RBC Distribution Width 18.2 % (11.5-14.5); Red Blood Cell (RBC) Count 3.39 mill/uL (4.20-5.40); White Blood Cell (WBC) Count 9.2 10x3/uL (4.8-10.8)
[2023-05-22 22:38] LABS: Pregnancy Test - Urine (BHCG) Negative (Negative); Pregu Control Background? CLEAR/WHITE (CLR/WHITE); Pregu Control Bar Appear? YES (CONTROL BAR)
[2023-05-22 22:43] LABS: ALT (SGPT) 10 U/L (8-55); AST (SGOT) 12 U/L (5-34); Albumin 3.6 g/dL (3.5-5.0); Alkaline Phosphatase 88 U/L (40-110); Anion Gap 16 mmol/L (10-20); BUN (Urea Nitrogen) 5 mg/dL (7.0-18.7); Bilirubin, Total 0.2 mg/dL (0.2-1.2); Calc. Creatinine Clearance 0 mL/min (70-130); Calcium 8.7 mg/dL (7.8-10.44); Carbon Dioxide 24 mmol/L (22-29); Chloride 102 mmol/L (98-107); Estimated GFR 109; Globulin 3.4 g/dL (2.4-3.5); Glucose 122 mg/dL (70-105); Potassium 3.6 mmol/L (3.5-5.1); Sodium 138 mmol/L (136-145)
[2023-05-22 22:44] LABS: Acetaminophen Less than 10 mcg/mL (10.0-30.0); Alcohol Less than 10.0 mg/dL (Less than 10); Salicylate Less than 8.0 mg/dL (15.0-30.0)
[2023-05-22 22:45] LABS: Amphetamine Not Detected (NotDetected); Barbiturates Screen Not Detected (NotDetected); Benzodiazepine Screen Not Detected (NotDetected); Cocaine Metabolite Screen Detected (NotDetected); Methadone Not Detected (NotDetected); Methamphetamine Not Detected (NotDetected); Opiate Screen Not Detected (NotDetected); Oxycodone Screen Not Detected (NotDetected); Phencyclidine (PCP) Detected (NotDetected); THC/Cannabinoid Screen Not Detected (NotDetected); Tricyclic Screen Not Detected (NotDetected)
[2023-05-22 22:58] LABS: Bilirubin Negative (Negative); Blood, Urine Large (Negative); Glucose, Urine (Dipstick) 100 mg/dL (Negative); Ketone, Urine Trace mg/dL (Negative); Leukocyte Small (Negative); Nitrite Positive (Negative); Protein, Urine (Dipstick) > or equal to 300 mg/dL (Neg-Trace)
[2023-05-22 22:59] LABS: Clarity Cloudy (Clear)
[2023-05-22 23:04] LABS: Specific Gravity, Urine 1.012 (1.002-1.036); pH, Urine 6.6 (5.0-9.0)
[2023-05-22 23:05] LABS: Specific Gravity 1.012 (1.002-1.036)
[2023-05-22 23:07] LABS: Bacteria/HPF 3+ HPF (None Seen); CAUTI Indications for Culture Dysuria,urgency,freq
[2023-05-22 23:08] LABS: Urine Culture Reflex No No
[2023-05-22] MEDS ORDERED: Cefdinir 300 MG CAP PO SCH (23:45)
[2023-05-23] MEDS ORDERED: Acetaminophen 500 MG TAB ONE (01:13)
[2023-05-23] MEDS ORDERED: Nicotine 14 MG PATCH ONE (03:55)
[2023-05-23] MEDS ORDERED: Cefdinir 300 MG CAP PO SCH (09:00)
== END 2023-05-23 22:06 | disposition short-term general hospital (02) ==
LOC: ERS 21:53
DX: R45.851 Suicidal ideations (principal); T50.905A Adverse effect of unspecified drugs, medicaments and biological substances, initial encounter; N39.0 Urinary tract infection, site not specified; K21.9 Gastro-esophageal reflux disease without esophagitis; F17.220 Nicotine dependence, chewing tobacco, uncomplicated
CPT/HCPCS: 36415; 80053; 80306; 80307; 81001; 81025; 85025; 93005

== ENCOUNTER 2023-05-23 19:29 | Inpatient (IN) | payer SELFPAY ==
[2023-05-23] MEDS ORDERED: cefTRIAXone (ROCEPHIN) 2 GM VIAL ONE (19:53)
[2023-05-23] MEDS ORDERED: Ketorolac Tromethamine 30 MG/ML VIAL ONE (19:53)
[2023-05-23 20:01] LABS: #Eosinphils 0.1 thou/uL (0.0-0.7); #Monocytes 0.4 thou/uL (0.11-0.59); #Neutrophils 3.6 thou/uL (1.40-6.50); %Basophils 0.3 % (0.0-1.0); %Eosinophils 1.5 % (0.0-10.0); %Lymphocytes 33.7 % (21.0-51.0); Mean Corpuscular HGB CONC 30.9 g/dL (32.0-36.0); Mean Corpuscular Hemoglobin 25.4 pg (27.0-31.0); Mean Platelet Volume 10.3 fL (7.4-10.4); Platelet Count 251 10x3/uL (130-400); Red Blood Cell (RBC) Count 3.55 mill/uL (4.20-5.40); White Blood Cell (WBC) Count 6.2 10x3/uL (4.8-10.8)
[2023-05-23 20:17] LABS: Manual Diff?? YES
[2023-05-23 20:39] LABS: Band 3 % (5-11); Eosinophils 1 % (0-10); Hypochromia SLIGHT = 6-15 cells HPF (0-5); Lymphocytes 34 % (21-51); Monocytes 8 % (0-10); Neutrophil 54 % (42-75); Platelet Adequacy Comment Platelets Normal; Polychromasia SLIGHT = 2-3 cells HPF (0-2); Total Cell Count 100
[2023-05-23 20:42] LABS: ALT (SGPT) 9 U/L (8-55); AST (SGOT) 15 U/L (5-34); Albumin 3.4 g/dL (3.5-5.0); Alkaline Phosphatase 82 U/L (40-110); Anion Gap 14 mmol/L (10-20); BUN (Urea Nitrogen) 8 mg/dL (7.0-18.7); Bilirubin, Total Less than 0.2 mg/dL (0.2-1.2); CK (CPK) 37 U/L (29-168); Calc. Creatinine Clearance 0 mL/min (70-130); Calcium 9.8 mg/dL (7.8-10.44); Carbon Dioxide 27 mmol/L (22-29); Chloride 105 mmol/L (98-107); Estimated GFR 109; Glucose 131 mg/dL (70-105); Potassium 3.6 mmol/L (3.5-5.1); Protein, Total 7.4 g/dL (6.0-8.3); Sodium 142 mmol/L (136-145)
[2023-05-23 21:37] LABS: Bacteria/HPF 2+ HPF (None Seen); Bilirubin Negative (Negative); Blood, Urine 1+ (Negative); CAUTI Indications for Culture Pelvic or flank pain; Clarity Clear (Clear); Glucose, Urine (Dipstick) Normal (Negative); Ketone, Urine Negative (Negative); Leukocyte Negative Leu/uL (Negative); Nitrite Negative (Negative); Protein, Urine (Dipstick) Negative (Neg-Trace); RBC/HPF 0-3 HPF (0-3); Renal Epithelial 0-3 HPF (None Seen); Specific Gravity, Urine 1.016 (1.002-1.036); Urobilinogen Normal mg/dL (Less than 2); pH, Urine 7.5 (5.0-9.0)
[2023-05-23 21:38] LABS: Urine Culture Reflex No No
[2023-05-23] MEDS ORDERED: Guaifenesin DM 100-10/5 ML UDCUP PO PRN (22:54)
[2023-05-23] MEDS ORDERED: Ketorolac Tromethamine 30 MG/ML VIAL IVP PRN (22:59)
[2023-05-23] MEDS ORDERED: Mometasone 200 MCG/Formoterol 5 MCG 120 PUFF INHALER INH SCH (23:00)
[2023-05-23] MEDS ORDERED: Nicotine 14 MG PATCH TD SCH (23:00)
[2023-05-23] MEDS ORDERED: guaiFENesin ER 600 MG TAB PO PRN (23:03)
[2023-05-23 23:13] VITALS: BMI 35.6
[2023-05-23] MEDS ORDERED: Lurasidone 20 MG TABLET PO SCH (23:15)
[2023-05-23] MEDS ORDERED: hydrOXYzine 25 MG TAB PO PRN (23:57)
[2023-05-24] MEDS: Acetaminophen 325 MG TAB PO SCH ×4 (00:08→17:39)
[2023-05-24 06:44] LABS: Hemoglobin 8.4 g/dL (12.0-16.0); Mean Corpuscular HGB CONC 30.1 g/dL (32.0-36.0); Mean Corpuscular Hemoglobin 25.1 pg (27.0-31.0); Mean Corpuscular Volume 83.5 fl (78.0-98.0); Mean Platelet Volume 10.1 fL (7.4-10.4); Platelet Count 236 10x3/uL (130-400); RBC Distribution Width 18.2 % (11.5-14.5); Red Blood Cell (RBC) Count 3.34 mill/uL (4.20-5.40); White Blood Cell (WBC) Count 5.3 10x3/uL (4.8-10.8)
[2023-05-24 07:06] LABS: Delete Auto Diff?? YES; Manual Diff?? YES
[2023-05-24 07:10] LABS: Anion Gap 12 mmol/L (10-20); BUN (Urea Nitrogen) 9 mg/dL (7.0-18.7); CRP (Inflammatory) 7.48 mg/dL (= or < 0.5); Calc. Creatinine Clearance 156 mL/min (70-130); Calcium 8.8 mg/dL (7.8-10.44); Carbon Dioxide 24 mmol/L (22-29); Chloride 109 mmol/L (98-107); Estimated GFR 111; Glucose 100 mg/dL (70-105); Iron 29 ug/dL (50-170); Iron Binding Capacity, Total 266 mcg/dL (265-497); Potassium 4.1 mmol/L (3.5-5.1); Sodium 141 mmol/L (136-145)
[2023-05-24 07:34] LABS: Ferritin 44.89 ng/mL (10-291)
[2023-05-24 07:42] LABS: Band 4 % (5-11); CellaVision Operator ID LAB.GE; Large Platelets 3.5 % (0-5); Lymphocytes 23 % (21-51); Monocytes 3 % (0-10); Neutrophil 67 % (42-75); Nucleated RBC (Manual Ct) 1 % (0); Platelet Adequacy Comment Platelets Normal; Polychromasia MODERATE = 3-4 cells HPF (0-2); Reactive Lymphocytes 2 % (0-10); Total Cell Count 114
[2023-05-24 07:48] LABS: HBCM Index 0.16 S/CO (0-0.79); HBSAg Index 0.18 S/CO (0-0.99); HIV (1/2) Antibody/Antigen Non-Reactive (NonReactive); Hep A IgM AB Non-Reactive S/CO (NonReactive); Hep A IgM S/CO 0.16 S/CO (0-0.79); Hep B Surf Ag Non-Reactive S/CO (NonReactive); Hep C IgG Ab Non-Reactive S/CO (NonReactive); Hep C Index 0.09 S/CO (0-0.79); Hepatitis B Core IgM Abs Non-Reactive S/CO (NonReactive)
[2023-05-24] MEDS: Mometasone 200 MCG/Formoterol 5 MCG 120 PUFF INHALER INH SCH ×2 (08:14→18:27)
[2023-05-24] MEDS ORDERED: FLUoxetine HCl 10 MG CAP PO SCH (09:00)
[2023-05-24] MEDS ORDERED: Polyethylene Glycol 3350 17 GM Packet PO PRN (10:52)
[2023-05-24 10:59] LABS: Syphilis Antibody Nonreactive (Nonreactive); Syphilis Antibody Index 0.07 S/CO (<1.00 Non-Reactive)
[2023-05-24 16:33] VITALS: BP 104/58; TEMP 98.4
[2023-05-24] MEDS ORDERED: cefTRIAXone\\ROCEPHIN 2 GM in Sodium Chloride 0.9% 100 ML IVPB SCH (20:00)
[2023-05-24] MEDS ORDERED: Lurasidone 20 MG TABLET PO SCH ×2 (21:00)
[2023-05-25] MEDS ORDERED: Ciprofloxacin 500 MG TAB PO SCH (08:00)
== END 2023-05-24 19:01 | disposition home or self-care (01) | DRG 690 ==
LOC: ERS 19:29 → OBSVTOIN 21:02 → T4-A 21:02
PROVIDERS: ADMIT Student in an Organized Health Care Education/Training Program; ATTEND Student in an Organized Health Care Education/Training Program
DX: N10 Acute pyelonephritis (principal); R78.81 Bacteremia; K21.9 Gastro-esophageal reflux disease without esophagitis; J45.909 Unspecified asthma, uncomplicated; F20.9 Schizophrenia, unspecified; F31.9 Bipolar disorder, unspecified; F17.210 Nicotine dependence, cigarettes, uncomplicated; B96.20 Unspecified Escherichia coli [E. coli] as the cause of diseases classified elsewhere; F19.10 Other psychoactive substance abuse, uncomplicated; D64.9 Anemia, unspecified; F12.129 Cannabis abuse with intoxication, unspecified; Z79.51 Long term (current) use of inhaled steroids; Z79.899 Other long term (current) drug therapy; Z98.890 Other specified postprocedural states; Z98.51 Tubal ligation status
CPT/HCPCS: 36415; 71045; 80048; 80053; 80074; 81001; 82550; 82728; 83540; 83550; 83605; 84145; 85025; 86140; 86780; 87040; 87086; 87389; 93005; 96374; G0378; J0696; J1650; J1885

== ENCOUNTER 2023-08-25 00:55 | Emergency (ER) | payer SELFPAY ==
[2023-08-25] MEDS ORDERED: LORazepam 2 MG/ML SYR.(CARPUJECT) ONE (01:57)
== END 2023-08-25 02:33 | disposition home or self-care (01) ==
LOC: ERS 00:55
DX: F41.9 Anxiety disorder, unspecified (principal); F19.10 Other psychoactive substance abuse, uncomplicated; K21.9 Gastro-esophageal reflux disease without esophagitis; F17.210 Nicotine dependence, cigarettes, uncomplicated; F17.220 Nicotine dependence, chewing tobacco, uncomplicated
CPT/HCPCS: 96372; 99283; J2060

== ENCOUNTER 2024-08-28 13:41 | Emergency (ER) | payer SELFPAY ==
[~2024-08-28 13:41] MED LIST: Iopamidol-370 76% 500 ML MDV (1 ML CHARGE) ONE
[2024-08-28 14:14] LABS: #Basophils Less than 0.03 10x3/uL (0.0-0.2); %Basophils 0.4 % (0.0-1.0); %Eosinophils 1.9 % (0.0-10.0); %Lymphocytes 35.8 % (21.0-51.0); %Monocytes 6.4 % (0.0-10.0); %Neutrophils 55.1 % (42.0-75.0); Hematocrit 34.3 % (36.0-47.0); Mean Corpuscular HGB CONC 32.1 g/dL (32.0-36.0); Mean Corpuscular Hemoglobin 27.8 pg (27.0-31.0); Mean Corpuscular Volume 86.8 fL (78.0-98.0); Mean Platelet Volume 9.6 fL (7.4-10.4); Platelet Count 199 10x3/uL (130-400); RBC Distribution Width 14.2 % (11.5-14.5); Red Blood Cell (RBC) Count 3.95 mill/uL (4.20-5.40)
[2024-08-28 14:31] LABS: ALT (SGPT) 8 U/L (8-55); AST (SGOT) 14 U/L (5-34); Albumin 3.5 g/dL (3.5-5.0); Alkaline Phosphatase 95 U/L (40-110); Anion Gap 11 mmol/L (10-20); BUN (Urea Nitrogen) 12 mg/dL (7.0-18.7); Bilirubin, Total 0.2 mg/dL (0.2-1.2); Calc. Creatinine Clearance 0 mL/min (70-130); Carbon Dioxide 25 mmol/L (22-29); Chloride 107 mmol/L (98-107); Estimated GFR 87; Globulin 3.1 g/dL (2.4-3.5); Glucose 154 mg/dL (70-105); Lipase 14 U/L (8-78); Potassium 3.5 mmol/L (3.5-5.1); Protein, Total 6.6 g/dL (6.0-8.3); Sodium 139 mmol/L (136-145)
[2024-08-28] MEDS ORDERED: Ketorolac Tromethamine 30 MG (1 mL) VIAL ONE (17:21)
[2024-08-28 17:59] LABS: BHCG - Serum Negative (NEGATIVE); Pregs Control Background? CLEAR/WHITE (CLR/WHITE); Pregs Control Bar Appear? YES (CONTROL BAR)
[2024-08-28 19:13] LABS: Bacteria/HPF 4+ HPF (None Seen); Bilirubin Negative (Negative); Blood, Urine 3+ (Negative); CAUTI Indications for Culture Pelvic or flank pain; Clarity Turbid (Clear); Glucose, Urine (Dipstick) Normal (Negative); Ketone, Urine Negative (Negative); Leukocyte 250 Leu/uL (Negative); Nitrite 2+ (Negative); Protein, Urine (Dipstick) 50 mg/dL (Neg-Trace); RBC/HPF Greater than 50 HPF (0-3); Specific Gravity, Urine 1.021 (1.002-1.036); Urobilinogen Normal mg/dL (Less than 2); pH, Urine 5.5 (5.0-9.0)
[2024-08-28 19:34] LABS: WBC/HPF 21-50 HPF (0-3)
[2024-08-28 19:37] LABS: Urine Culture Reflex Yes Yes
[2024-08-28] MEDS ORDERED: cefTRIAXone (ROCEPHIN) 2 GM VIAL ONE (20:14)
[2024-08-28] MEDS ORDERED: Sodium Chloride 0.9% 100 ML ONE (20:14)
[2024-08-29 10:31] LABS: Chlamydia by PCR, Vaginal Swab Not Detected (NotDetected); GC by PCR, Vaginal Swab Not Detected (NotDetected)
== END 2024-08-28 20:50 | disposition home or self-care (01) ==
LOC: ERS 13:41
DX: N10 Acute pyelonephritis (principal)
CPT/HCPCS: 36415; 74177; 80053; 81001; 83690; 84703; 85025; 87077; 87086; 87186; 87480; 87491; 87510; 87591; 87660; 96361; 96374; 96375; J0696; J1885; Q9967

== ENCOUNTER 2024-12-16 16:43 | Emergency (ER) | payer SELFPAY ==
[2024-12-16 18:42] LABS: Bacteria/HPF None Seen HPF (None Seen); Bilirubin Negative (Negative); Blood, Urine Trace (Negative); CAUTI Indications for Culture Dysuria,urgency,freq; Clarity Clear (Clear); Glucose, Urine (Dipstick) Normal (Negative); Ketone, Urine Negative (Negative); Leukocyte 25 Leu/uL (Negative); Nitrite Negative (Negative); Protein, Urine (Dipstick) Negative (Neg-Trace); RBC/HPF 0-3 HPF (0-3); Urobilinogen Normal mg/dL (Less than 2); WBC/HPF 0-3 HPF (0-3); pH, Urine 6.5 (5.0-9.0)
[2024-12-16 18:44] LABS: Urine Culture Reflex No No
[2024-12-16 18:55] LABS: Hematocrit 35.7 % (36.0-47.0); Hemoglobin 11.1 g/dL (12.0-16.0); Mean Corpuscular HGB CONC 31.1 g/dL (32.0-36.0); Mean Corpuscular Hemoglobin 26.4 pg (27.0-31.0); Mean Corpuscular Volume 84.8 fL (78.0-98.0); Platelet Count 183 10x3/uL (130-400); RBC Distribution Width 16.9 % (11.5-14.5); Red Blood Cell (RBC) Count 4.21 mill/uL (4.20-5.40)
[2024-12-16 19:08] LABS: ALT (SGPT) 10 U/L (Less than 34); AST (SGOT) 21 U/L (11-34); Albumin 3.9 g/dL (3.1-4.5); Alkaline Phosphatase 89 U/L (40-110); Anion Gap 10 mmol/L (10-20); BUN (Urea Nitrogen) 9 mg/dL (7.0-18.7); Bilirubin, Total 0.1 mg/dL (0.3-1.2); Calc. Creatinine Clearance 0 mL/min (70-130); Calcium 9.1 mg/dL (7.8-10.44); Carbon Dioxide 25 mmol/L (22-29); Chloride 113 mmol/L (98-107); Estimated GFR 59; Globulin 3.4 g/dL (2.4-3.5); Glucose 78 mg/dL (70-105); Potassium 3.8 mmol/L (3.5-5.1); Protein, Total 7.3 g/dL (6.0-8.3); Sodium 144 mmol/L (136-145)
[2024-12-16 19:21] LABS: Anisocytosis SLIGHT = 6-15 cells HPF (0-5); Band 2 % (5-11); Eosinophils 2 % (0-10); Lymphocytes 39 % (21-51); Macrocytosis SLIGHT = 6-15 cells HPF (0-5); Monocytes 4 % (0-10); Neutrophil 53 % (42-75); Platelet Adequacy Comment Platelets Normal; Polychromasia SLIGHT = 2-3 cells HPF (0-2); Tear Drops SLIGHT = 2-5 cells HPF (0-1)
== END 2024-12-16 19:50 | disposition home or self-care (01) ==
LOC: ERS 16:43
DX: B34.9 Viral infection, unspecified (principal)
CPT/HCPCS: 36415; 71045; 80053; 81001; 85025; 87428; 99284

== ENCOUNTER 2024-12-25 10:12 | Emergency (ER) | payer SELFPAY ==
[2024-12-25] MEDS ORDERED: Boostrix 0.5 ML (Tdap) VIAL (>/=7 yrs of age) ONE (11:06)
[2024-12-25] MEDS ORDERED: Lidocaine 1% w/Epinephrine 1:100K 20 ML VIAL ONE (11:06)
== END 2024-12-25 13:00 | disposition home or self-care (01) ==
LOC: ERS 10:12
DX: S01.111A Laceration without foreign body of right eyelid and periocular area, initial encounter (principal); S05.11XA Contusion of eyeball and orbital tissues, right eye, initial encounter; S09.90XA Unspecified injury of head, initial encounter; F41.8 Other specified anxiety disorders; F31.9 Bipolar disorder, unspecified; F43.10 Post-traumatic stress disorder, unspecified; F17.290 Nicotine dependence, other tobacco product, uncomplicated; Y04.0XXA Assault by unarmed brawl or fight, initial encounter; Z23 Encounter for immunization
CPT/HCPCS: 12011; 70450; 70486; 72125; 90471; 90715

== ENCOUNTER 2025-10-08 11:38 | Emergency (ER) | payer SELFPAY | END 2025-10-08 14:28 | disposition home or self-care (01) | LOC: ERS 11:38 | DX: J20.9 Acute bronchitis, unspecified (principal); F17.290 Nicotine dependence, other tobacco product, uncomplicated | CPT/HCPCS: 71045; 87428; 96372; J1100 ==